=== PATIENT | male | born 1950 | race Caucasian/White ===

== ENCOUNTER → 2019-10-31 09:05 | Outpatient (CLI) | payer OTHER, SELFPAY ==
--- NOTE | 2019-10-31 09:08 | MRI_ITS ---
STUDY: MRI BRAIN WITH AND WITHOUT CONTRAST (ATTENTION INTERNAL AUDITORY CANALS - I.A.C.''s) REASON FOR EXAM: Male, 69 years old. asymmetric hearing loss TECHNIQUE: Standardized multiplanar fat and water weighted pulse sequences were obtained. IV DOtarem 13ml was administered for the contrast portion of the examination. COMPARISON: None. FINDINGS: Normal bilateral temporal bones. Normal bilateral internal auditory canals. There is no demonstrated intracanalicular or cisternal vestibular schwannoma (acoustic neuroma). There is no enhancement of the bilateral VIIth or VIIIth cranial nerves. Normal bilateral cochlea, vestibules and semicircular canals. There is mild cerebral atrophy with widening of the extra-axial spaces and ventricular dilatation. There are multiple white matter hyperintensities, distributed throughout the deep white matter tracts of the cerebral hemispheres, consistent with moderate chronic white matter ischemic changes. Normal bilateral basal ganglia. Normal thalami. Normal flow voids within the major intracranial circulation suggesting patency by spin echo criteria. Normal venous enhancement. There is no enhancing intra-axial or extra-axial abnormality. There is no extra-axial fluid accumulation. Normal sella turcica, pituitary gland, infundibular stalk, optic chiasm and hypothalamus. Normal tectal plate and pineal gland. Normal midbrain, [place] and medulla. Normal cerebellum. MRI/Brain W/WO Contrast IMPRESSION: There is no demonstrated intracanalicular or cisternal vestibular schwannoma (acoustic neuroma). Electronically Signed: Lin Felix MD at 16:04 EDT Tel , Service support ,
--- NOTE | 2019-10-31 09:12 | RAD_ITS ---
STUDY: X-RAY - ORBITS REASON FOR EXAM: Male, 69 years old. hx of metal to the eye, mri clearance TECHNIQUE: 1 view(s) of the orbits were obtained. COMPARISON: None. FINDINGS: Normal bilateral orbits without a metallic orbital foreign body. Normal visualized facial bones. Normal paranasal sinuses. The soft tissue structures are unremarkable. RAD/Orbits for Foreign Body IMPRESSION: No demonstrated metallic orbital foreign body. The patient is cleared for an MRI examination. Electronically Signed: Mikael Colbert, at 10:13 EDT Tel , Service support ,
[2019-10-31 09:51] LABS: CREATININE FINGERSTICK 1.2 mg/dL (0.70-1.30); EGFR FINGERSTICK > 60.0000 mL/min (>60)
== END ==
PROVIDERS: PCP Family Medicine; Referring Provider Otolaryngology; Visit Provider Otolaryngology
DX: H91.90 Unspecified hearing loss, unspecified ear (principal)
CPT/HCPCS: 70030; 70553; A9575